=== PATIENT | female | born 1965 | race Caucasian/White ===

== ENCOUNTER 2017-12-06 04:31 | Emergency (ER) | payer BC ==
[2017-12-06 04:59] VITALS: BMI 35.4
[2017-12-06 05:08] LABS: BASO % 1.3 % (0-2.0); EOS % 3.8 % (0-4.5); HEMATOCRIT 43.7 % (32.4-45.2); HEMOGLOBIN 15.1 GM/dL (10.7-15.3); LYMPH % 35.9 % (8-40); MCH 31.5 pg (25.7-33.7); MCHC 34.6 g/dl (32.0-36.0); MONO % 7.9 % (3.8-10.2); NEUT % 51.1 % (42.8-82.8); PLATELET COUNT 224 K/MM3 (134-434); RDW 13.7 % (11.6-15.6); WHITE BLOOD COUNT 8.6 K/mm3 (4.0-10.0)
[2017-12-06 05:08] LABS: URINE APPEARANCE SLCLOUDY; URINE BILIRUBIN NEGATIVE (<2.0 mg/dL); URINE BLOOD 1+ (NEGATIVE); URINE COLOR YELLOW; URINE GLUCOSE (UA) NEGATIVE (NEGATIVE); URINE KETONE NEGATIVE (NEGATIVE); URINE NITRITE NEGATIVE (NEGATIVE); URINE PROTEIN NEGATIVE (NEGATIVE); URINE UROBILINOGEN NEGATIVE mg/dL (0.2-1.0)
--- NOTE | 2017-12-06 05:08 | PDOC ---
History of Present Illness - General Chief Complaint: Pain Stated Complaint: ABD PAIN Time Seen by Provider: 12/06/17 04:47 History Source: Patient Exam Limitations: No Limitations - History of Present Illness Initial Comments: CHIEF COMPLAINT: 52 y/o afebrile female with no significant PMH c/o right upper abdominal pain x 2 days. HISTORY OF PRESENT ILLNESS: The patient states the pain was intermittent but has worsened. She admits she's had a cold and has been coughing a lot. She denies f/c, n/v/d, CP, SOB, hemoptysis, back pain, hematuria, dysuria. Vital signs on arrival are notable for O2 sat of 95%. REVIEW OF SYSTEMS: GENERAL/CONSTITUTIONAL: No fever/chills. No weakness. No weight change. HEAD, EYES, EARS, NOSE AND THROAT: No change in vision. No ear pain or discharge. No sore throat. CARDIOVASCULAR: No chest pain or shortness of breath. RESPIRATORY: +dry cough. No wheezing or hemoptysis. GASTROINTESTINAL: +right upper abdominal pain. No nausea, vomiting, diarrhea. GENITOURINARY: No dysuria, frequency, or change in urination. MUSCULOSKELETAL: No joint or muscle swelling or pain. No neck or back pain. SKIN: No rash or easy bruising. NEUROLOGIC: No headache, vertigo, loss of consciousness, or loss of sensation. PHYSICAL EXAM: GENERAL: The patient is awake, alert, and fully oriented, in no acute distress. She is well appearing and pleasant. HEAD: Normal with no signs of trauma. ENT: Pupils equal, round and reactive to light, extraocular movements intact, sclera anicteric, conjunctiva clear. LUNGS: Clear to auscultation bilaterally. Normal excursion. No respiratory distress or use of accessory muscles. CV: RRR, S1/S2, no MRG. Cap refill < 2 sec. CHEST WALL: Exquisitely tender to palpation at anterior rib T9 and T10 without crepitus, deformities or flail chest. ABDOMEN: Soft, non-distended, TTP of RUQ, no hepatomegaly or splenomegaly, no masses. +mc's sign vs rib pain BACK: No CVA TTP b/l. EXTREMITIES: Normal range of motion, no edema. NEUROLOGICAL: Normal speech, normal gait. CN II-XII grossly intact. PSYCH: Normal mood, normal affect. SKIN: Warm, dry, normal turgor, no rashes or lesions noted. Past History - Past Medical History Allergies/Adverse Reactions: Allergies Allergy/AdvReac Type Severity Reaction Status Date / Time No Known Allergies Allergy Verified 12/06/17 04:49 Home Medications: Ambulatory Orders NK [No Known Home Medication] 11/16/13 Hypercholesterolemia: Yes - Suicide/Smoking/Psychosocial Hx Smoking History: Former smoker ED Treatment Course - LABORATORY CBC & Chemistry Diagram: 12/06/17 05:02 12/06/17 05:02 Medical Decision Making - Medical Decision Making A/P: 52 y/o female with right upper quadrant vs right rib pain. Plan is as follows: 1. labs 2. CXR 3. UA Liver enzymes mildly elevated. Will send for gallbladder ultrasound I am signing this patient out to my colleague: MARAH Manuel In brief, this patient is being seen in the ED for a chief complaint of: right upper abdominal pain I have completed the initial assessment interview note and have ordered: labs, UA, CXR, gallbladder ultrasound I have reviewed the following results: Labs, UA Pending results are: CXR, gallbladder ultrasound Plan for disposition is as follows: pending *DC/Admit/Observation/Transfer Diagnosis at time of Disposition: Right upper quadrant abdominal pain - Referrals - Patient Instructions - Post Discharge Activity
[2017-12-06 05:09] LABS: URINE LEUK ESTERASE 1+ (NEGATIVE)
[2017-12-06 05:10] LABS: EPI CELLS RARE /HPF (FEW); URINE BACTERIA RARE /hpf (NONE SEEN); URINE HYALINE CAST 1 /lpf; URINE MUCUS RARE
[2017-12-06 05:38] LABS: ALBUMIN 4.2 g/dl (3.4-5.0); ALK PHOS 93 U/L (45-117); ANION GAP 4 (8-16); BILIRUBIN,TOTAL 0.4 mg/dL (0.2-1.0); BLOOD UREA NITROGEN 13 mg/dL (7-18); CALCIUM 8.8 mg/dL (8.5-10.1); CHLORIDE 109 mmol/L (98-107); CO2 28 mmol/L (21-32); CREATININE 0.8 mg/dL (0.55-1.02); GLUCOSE,RANDOM 115 mg/dL (74-106); LIPASE 167 U/L (73-393); POTASSIUM 4.2 mmol/L (3.5-5.1); SGOT/AST 81 U/L (15-37); SGPT/ALT 130 U/L (12-78); SODIUM 141 mmol/L (136-145); TOT PROT 8.3 g/dl (6.4-8.2)
--- NOTE | 2017-12-06 06:42 | PDOC ---
*Physical Exam - Vital Signs Last Vital Signs Temp Pulse Resp BP Pulse Ox 97.7 F 87 18 102/82 95 12/06/17 04:51 12/06/17 04:51 12/06/17 04:51 12/06/17 04:51 12/06/17 04:51 ED Treatment Course - LABORATORY CBC & Chemistry Diagram: 12/06/17 05:02 12/06/17 05:02 - ADDITIONAL ORDERS Additional order review: Laboratory Results 12/06/17 12/06/17 05:02 04:55 Sodium 141 Potassium 4.2 Chloride 109 H Carbon Dioxide 28 Anion Gap 4 L BUN 13 Creatinine 0.8 Creat Clearance w eGFR > 60 Random Glucose 115 H Calcium 8.8 Total Bilirubin 0.4 D AST 81 H ALT 130 H Alkaline Phosphatase 93 Total Protein 8.3 H Albumin 4.2 Lipase 167 Urine Color Yellow Urine Appearance Slcloudy Urine pH 5.0 Ur Specific [place] 1.019 Urine Protein Negative Urine Glucose (UA) Negative Urine Ketones Negative Urine Blood 1+ H Urine Nitrite Negative Urine Bilirubin Negative Urine Urobilinogen Negative Ur Leukocyte Esterase 1+ H Urine WBC (Auto) 22 Urine RBC (Auto) 2 Ur Epithelial Cells Rare Urine Bacteria Rare Hyaline Casts 1 Urine Mucus Rare 12/06/17 05:02 RBC 4.80 MCV 91.0 MCHC 34.6 RDW 13.7 MPV 9.0 Neutrophils % 51.1 Lymphocytes % 35.9 Monocytes % 7.9 Eosinophils % 3.8 Basophils % 1.3 D Medical Decision Making - Medical Decision Making 12/06/17 06:42 agree with care from KYLIE Kimble *DC/Admit/Observation/Transfer Diagnosis at time of Disposition: Right upper quadrant abdominal pain - Referrals - Patient Instructions - Post Discharge Activity
--- NOTE | 2017-12-06 07:34 | PDOC ---
*Physical Exam - Vital Signs Last Vital Signs Temp Pulse Resp BP Pulse Ox 97.7 F 87 18 102/82 95 12/06/17 04:51 12/06/17 04:51 12/06/17 04:51 12/06/17 04:51 12/06/17 04:51 - Physical Exam Comments: 12/06/17 15:26 General Appearance: This well appearing 52-year-old female V/S: hemodynamically stable, afebrile Skin: WNL of pt's skin color, no signs of pallor, mottling, cyanosis Head:symmetrical Eyes: EOM's intact, PERRLA Ears: denies pain Nose: patent Throat: lips, teeth, gums, tongue, buccal mucos pink and moist Lungs: Chest symmetry equal. Cap refill <3 seconds. Lung sounds clear Cardiac: PMI at R 4MCL space, pos S1 and S2, regular rate. Abdomen: Soft, round, nontender : Not observed Muscularskeletal: Gait steady, ambulated in to ER, no edema +PMS Neuro: AAOx3, cognitively intact, speech clear and appropriate. ED Treatment Course - LABORATORY CBC & Chemistry Diagram: 12/06/17 05:02 12/06/17 05:02 - ADDITIONAL ORDERS Additional order review: Laboratory Results 12/06/17 12/06/17 05:02 04:55 Sodium 141 Potassium 4.2 Chloride 109 H Carbon Dioxide 28 Anion Gap 4 L BUN 13 Creatinine 0.8 Creat Clearance w eGFR > 60 Random Glucose 115 H Calcium 8.8 Total Bilirubin 0.4 D AST 81 H ALT 130 H Alkaline Phosphatase 93 Total Protein 8.3 H Albumin 4.2 Lipase 167 Urine Color Yellow Urine Appearance Slcloudy Urine pH 5.0 Ur Specific [place] 1.019 Urine Protein Negative Urine Glucose (UA) Negative Urine Ketones Negative Urine Blood 1+ H Urine Nitrite Negative Urine Bilirubin Negative Urine Urobilinogen Negative Ur Leukocyte Esterase 1+ H Urine WBC (Auto) 22 Urine RBC (Auto) 2 Ur Epithelial Cells Rare Urine Bacteria Rare Hyaline Casts 1 Urine Mucus Rare 12/06/17 05:02 RBC 4.80 MCV 91.0 MCHC 34.6 RDW 13.7 MPV 9.0 Neutrophils % 51.1 Lymphocytes % 35.9 Monocytes % 7.9 Eosinophils % 3.8 Basophils % 1.3 D Medical Decision Making - Medical Decision Making 12/06/17 07:32 I have received report from KYLIE Kimble regarding this patient. Pt's initial chief complaint:RUQ abd pain Pt's work up completed prior to sign out:labs, ua, CXR, Pt treatment given from prior staff: Pt plan to be completed:f/u u/s report Dispo:discharge home Seen pt and found her sleeping comfortably, when awoke she states she has pain in RUQ on and off and it wakes her up. 12/06/17 09:40 neg u/s for gall stones or dilitation discharge with follow up with GI *DC/Admit/Observation/Transfer Diagnosis at time of Disposition: Right upper quadrant abdominal pain - Discharge Dispostion Disposition: HOME Condition at time of disposition: Stable Admit: No - Referrals Referrals: Aiden Gerard MD [Staff Physician] - - Patient Instructions Printed Discharge Instructions: Nonalcoholic Fatty Liver Disease Additional Instructions: Discharge instructions 1. Please follow up with your primary physician within the next few days and explain that you have been seen here in the Emergency Room. Follow up with a GI physician for review of your upper abdomen pain 2. If you experience any worsening of symptoms, please return to the ER 3. Rest, avoid fats and alcohol, 4. Drink plenty of water - Post Discharge Activity Forms/Work/School Notes: Back to Work
[2017-12-06 09:56] VITALS: BP 120/71; PULSE 81; TEMP 98.1
== END 2017-12-06 09:56 | disposition home or self-care (01) ==
LOC: JER 04:31
DX: R10.11 Right upper quadrant pain (principal)
CPT/HCPCS: 36415; 71046-TC-FY; 71101-TC-RT-FY; 76705-TC; 80053; 81003; 81015; 83690; 85025; 87086; 99283-25